=== PATIENT | female | born 1990 | race Caucasian/White ===

== ENCOUNTER 2021-09-24 07:39 | Outpatient (CLI) | payer BC | END 2021-09-24 07:40 | disposition home or self-care (01) | LOC: NM 07:39 | PROVIDERS: ATTEND Specialist | DX: R10.9 Unspecified abdominal pain (principal) | CPT/HCPCS: 78227; A9537 ==

== ENCOUNTER 2022-04-03 14:37 | Emergency (ER) | payer BC | END 2022-04-03 18:13 | disposition home or self-care (01) | LOC: ERS 14:37 | DX: B34.9 Viral infection, unspecified (principal); E11.9 Type 2 diabetes mellitus without complications; Z87.891 Personal history of nicotine dependence; Z79.84 Long term (current) use of oral hypoglycemic drugs | CPT/HCPCS: 87804; 99283 ==

== ENCOUNTER 2024-04-06 14:26 | Emergency (ER) | payer BC ==
[2024-04-06] MEDS ORDERED: Boostrix 0.5 ML (Tdap) VIAL (>/=7 yrs of age) ONE (16:44)
== END 2024-04-06 14:48 | disposition home or self-care (01) ==
LOC: ERS 14:26
DX: S00.511A Abrasion of lip, initial encounter (principal); S50.811A Abrasion of right forearm, initial encounter; R03.0 Elevated blood-pressure reading, without diagnosis of hypertension; E11.9 Type 2 diabetes mellitus without complications; Z87.891 Personal history of nicotine dependence; Z23 Encounter for immunization; W55.03XA Scratched by cat, initial encounter; Y93.89 Activity, other specified
CPT/HCPCS: 12011; 90471; 90715